=== PATIENT | male | born 1995 | race Caucasian/White ===

== ENCOUNTER 2025-05-30 20:40 | Inpatient (IN) | payer OTHER, SELFPAY ==
[2025-05-30 17:54] VITALS: BP 135/97
[2025-05-30 18:15] LABS: Hematocrit 39.4 % (39.0-52.0); Hemoglobin 13.5 g/dL (13.0-18.0); Mean Corp Hgb Conc. 34.3 g/dL (33.0-37.0); Mean Corpuscular Volume 86.0 fL (80.0-94.0); Nucleated Red Blood Cells % 0 % (-); Platelet Count 463 10^3/uL (130-400); Red Cell Dist. Width 13.9 % (11.5-14.5)
[2025-05-30 18:27] LABS: ALT (SGPT) 35 U/L (0-50); AST (SGOT) 26 U/L (17-59); Albumin 4.1 g/dl (3.5-5.0); Alkaline Phosphatase 71 U/L (38-126); Blood Urea Nitrogen 7 mg/dl (9-20); Calcium 9.7 mg/dl (8.4-10.2); Carbon Dioxide 28 mmol/L (22-30); Chloride 101 mmol/L (98-107); Glucose 111 mg/dl (70-99); Lipase 1621 U/L (23-300); Potassium 4.7 mmol/L (3.5-5.1); Sodium 135 mmol/L (135-145); Total Protein 6.8 g/dl (6.3-8.2); eGFR > 60.00
--- NOTE | 2025-05-30 19:19 | ED.GENMED ---
History of Present Illness
General
Chief Complaint: Abdominal Pain
Source: patient
Exam Limitations: none
Time Seen by Provider: 05/30/25 19:06
Nursing documentation reviewed up to this point in time: agreed with
History of Present Illness
History of Present Illness:
30-year-old male with a history as documented notable for alcohol abuse who presents to the emergency department for evaluation of abdominal pain. Patient reports onset of symptoms 3 days ago and have been constant since that time. He reports an
intense pain in the epigastrium radiates to the back as well as intense cramping across the mid abdomen. He reports associated nausea and bilious vomiting. He denies any diarrhea or constipation. Denies any urinary symptoms. Denies fevers or
chills. He is currently visiting the area for work, lives in [place]. He notes that he has a history of pancreatitis and in fact has had 2 recent flareups requiring hospitalization in [place] most recently last week. He claims his last alcohol
use was a month ago.
Review of Systems
Review of Systems
All Other Systems: ROS reviewed and negative except as documented in HPI and ROS
Constitutional: Denies fever
Respiratory: Denies trouble breathing
Cardiac: Denies chest pain
ABD/GI: Reports abdominal pain, nausea and vomiting; Denies diarrhea or constipated
: Denies flank pain
Musculoskeletal: Denies neck pain
Neurological: Denies dizzy or headache
Phy Exam
Physical Exam
Physical Exam:
General: Awake, alert, oriented x3; no acute distress
Head: Normocephalic, atraumatic
Eyes: Conjunctiva normal, sclera anicteric, pupils somewhat dilated and reactive to light bilaterally
Throat: Airway intact, handling secretions
Neck: Trachea midline, supple without meningismus
Lungs: Clear to auscultation bilaterally, no wheezing, rales, rhonchi
Heart: Regular rate and rhythm, no murmurs, gallops, or rubs appreciated
Abd: Soft, non distended, mild diffuse tenderness with moderate to severe tenderness in the epigastrium, no palpable masses
Neuro: Grossly intact
Skin: No jaundice noted
Extremities: Warm and well-perfused
Scores
Heart Failure Risk
Heart Failure Risk Score: Not Applicable
Heart Score for Chest Pain Patients
STEMI patient?: Not applicable
Withdrawal Assessment of Alcohol
Withdrawal Assessment Completed?: Not applicable
Course
Orders/Labs/Results
Orders:
Orders
05/30/25 18:04
Alcohol Urgent
Complete Blood Count/With Diff Urgent
Comprehensive Metabolic Panel Urgent
LDH Urgent
Comment: ADD ON
Lipase Urgent
05/30/25 19:09
0.9% Sodium Chloride 1000 ml [Nss] 1,000 ml IV BOLUS
05/30/25 19:18
CT Abd/pelvis W Iv Cont Urgent
Comment:
Reason For Exam: abd pain, N/V, h/o pancreatitis
05/30/25 19:19
HYDROmorphone [Dilaudid] 0.5 mg IV NOW STA
05/30/25 19:24
Electrocardiogram (*1) Urgent
Reason for Study: QTc Monitoring
EKG- Treatment ONCE
Abnormal Lab Results
05/30/25
18:04
WBC 12.2 H 10^3/uL
(4.8-10.8)
RBC 4.58 L 10^6/uL
(4.70-6.10)
Plt Count 463 H 10^3/uL
(130-400)
Absolute Neuts (auto) 10.2 H 10^3/uL
(1.4-6.5)
Absolute Lymphs (auto) 1.1 L 10^3/uL
(1.2-3.4)
Absolute Monos (auto) 0.7 H 10^3/uL
(0.1-0.6)
Neutrophils % 83.8 H %
(42.2-75.2)
Lymphocytes % 9.3 L %
(20.5-51.1)
BUN 7 L mg/dl
(9-20)
Glucose 111 H mg/dl
(70-99)
Lipase 1621 H* U/L
(23-300)
05/30/25 18:04
05/30/25 18:04
Vital Signs
Initial and Last Documented VS:
Initial Vital Signs
Temp Pulse Resp BP Pulse Ox
36.3 C 70 18 135/97 99
05/30/25 17:54 05/30/25 17:54 05/30/25 17:54 05/30/25 17:54 05/30/25 17:54
Last Documented Vital Signs
Temp Pulse Resp BP Pulse Ox
36.3 C 70 18 135/97 99
05/30/25 17:54 05/30/25 17:54 05/30/25 17:54 05/30/25 17:54 05/30/25 19:23
MDM/Problems Addressed
Differential Diagnosis Includes:
Pancreatitis, gastritis, cholelithiasis/cholecystitis
MDM/Problems Addressed:
30-year-old male with history of alcohol use presents for evaluation of abdominal pain that she reports similar to prior episodes of pancreatitis for which he has required hospitalization twice in the past month. Vitals and exam as above. Labs
were sent off including a CBC which shows a leukocytosis, CMP which showed no significant electrolyte derangements. His T. bili and transaminases are normal but his lipase is markedly elevated at 1621 consistent with acute pancreatitis. Added
alcohol level. Added LDH. Check CT abdomen and pelvis with no prior abdominal imaging. Pain control and fluids. Discussed case with hospitalist for admission.
Chronic conditions affecting care:
Alcohol use
*Radiology
Radiology exam reviewed: radiology read reviewed
*Pulse Oximetry
SaO2: 99
Oxygen Mode of Delivery: Room air
Patient hypoxic: no (99%)
*Critical Care Note
Total Time (30-74mins, 75-104mins- exclusive of procedures): Not Applicable
Data Reviewed
Source: patient
Patient Management
Social determinants of health affecting care: Substance abuse (Alcohol use)
Discussion with other providers: Hospitalist (Discussed with hospitalist)
Escalation/DeEscalation of care consider admission/obs:
Admission indicated
ED Attending Note
-
Portions of this chart may have been created with voice recognition software.� Occasional wrong word or��sound alike� substitutions may have occurred due to the inherent limitations of voice recognition software.
Discharge Plan
Departure
Patient Disposition: Admit
Date of Disposition: 05/30/25
Time of Disposition: 19:25
Admit to doctor: Dory
Presentation/result/management discussed w/ accepting MD/DO: Hospitalist
Discharge Problem:
Acute pancreatitis
Interventions
Interventions:
*Risk Screen - Suicide Last Done: 05/30/25 17:54
*General Assessment Last Done: 05/30/25 17:54
*Neglect/Abuse Screening Last Done: 05/30/25 17:54
*ED COVID-19 Vaccine History Last Done: 05/30/25 17:54
*ED Influenza Vaccine History Last Done: 05/30/25 17:54
Discharge Date and Time
Print Language: SCOTTISH
--- NOTE | 2025-05-30 19:36 | HPS.HSE ---
Family Physician
-
Family Physician:
Chief Complaint
-
abdominal pain
History of Present Illness
Patient is a 30-year-old male with past medical history significant for alcohol dependency who presented to [facility] ED for evaluation of abdominal pain associated with nausea and vomiting. Patient reports that pain was abrupt onset around midnight last
night and has not had any relief since. He describes pain as severe in epigastrium that radiates to his back, cramping like pain diffuse across abdomen and associated nausea and vomiting. Denies any fever, chills, chough, shortness of breath, chest
pain, diarrhea or urinary symptoms. He states that he has had history of pancreatitis requrining hospitalization most recently 2x in the last 30 days.
Medical History
Past Medical History
Past Medical History: Reports Other
Additional Past Medical History:
alcohol dependency
Hx pancreatitis
Past Surgical History: Reports Other
Additional Past Surgical History:
right ankle repair
exploratory abdominal surgery
Social History
Tobacco: Non-smoker
Alcohol: Former (last drink about a month a go )
Drug: Marijuana (uses edibles and/or smokes approximately 2x per week )
Living: Alone
Employment: Employed
Family History
Family History: Not pertinent
Allergies / Home Medications
Allergies reflects when Allergies were last updated in [employer].
Home Medications with original date entered in [employer]
Allergy/Medication List:
Allergies
Allergy/AdvReac Type Severity Reaction Status Date / Time
No Known Allergies Allergy Unverified 05/30/25 17:58
Home Medications
clonazepam 1 mg tablet 1 mg PO BIDPRN PRN anxiety 05/30/25
fluoxetine 40 mg capsule 40 mg PO DAILY 05/30/25
lumateperone 42 mg capsule (Caplyta) 42 mg PO DAILY 05/30/25
omeprazole 40 mg capsule,delayed release 40 mg PO DAILY 05/30/25
Review of Systems
-
History Source: Patient
Constitutional: Denies Fever or Chills
EENT: Denies Sore Throat
Respiratory: Denies Cough or Trouble Breathing
Cardiac: Denies Chest Pain, Diaphoresis, Palpitations or Syncope
Abdomen/GI: Reports Abdominal Pain, Nausea and Vomiting; Denies Diarrhea
: Denies Dysuria, Frequency or Urgency
Skin: Denies Rash
Neurological: Denies Dizzy, Headache, Weakness or Numbness
Physical Exam
Vital Signs
Vital Signs
Temp Pulse Resp BP Pulse Ox
97.4 F 70 18 135/97 99
05/30/25 17:54 05/30/25 17:54 05/30/25 17:54 05/30/25 17:54 05/30/25 19:23
Physical Exam
General: Well Developed, Well Nourished, Conversant and Pain
HEENT: NormoCephalic, Moist mucous membranes, Nose Appears Normal and Ears Appear Normal
Respiratory: Clear and Non Labored Respirations
Cardiac: S1/S2 and Regular Rhythm; No Murmur, Rub, Gallop or Peripheral Edema
Breast: Deferred by me
GI: Soft, Non Distended, Normal Bowel Sounds and Tender
Rectal: Deferred by Provider
Genito-urinary: Deferred by me
Musculoskeletal: No Clubbing, No Cyanosis and No Edema
Skin: Warm and IV/Catheter Site
Neuro: Awake, AO x 3 and Nonfocal/grossly intact
Psych: Anxious
Laboratory Results
-
05/30/25 18:04
05/30/25 18:04
Laboratory Results
Total Bilirubin 0.6 mg/dl (0.2-1.3) 05/30/25 18:04
AST 26 U/L (17-59) 05/30/25 18:04
ALT 35 U/L (0-50) 05/30/25 18:04
Alkaline Phosphatase 71 U/L (38-126) 05/30/25 18:04
Lipase 1621 U/L (23-300) H* 05/30/25 18:04
Data Reviewed
-
Lab Data: Labs Reviewed by me (WBC 12.2, Neut 83.8, lipase 1621)
Impression/Plan
-
IMPRESSION/PLAN:
#abdominal pain associated with nausea/vomiting 2/2 alcoholic pancreatitis vs. appendicitis vs. cholecystitis vs. gastritis
#alcohol dependency
#Hx pancreatitis
WBC 12.2, Neut 83.8, lipase 1621
Abd/Pel Ct: pending
reports last drink >30 days ago
reports hospitalization for pancreatitis x2 in last 30 days
- Admit to med/surg
- IVF NSS 200cc/hr
- pain regimen
- antiemetics
- supportive care
Code status: full code
DVT prophylaxis: SCDs
[2025-05-30] MEDS: DILAUDID 0.5 MG IV ×2 (19:52→21:27)
[2025-05-30] MEDS: NSS 1000 IV ×2 (19:52→22:28)
[2025-05-30 19:53] LABS: LDH 201 U/L (120-246)
[2025-05-30] MEDS: ZOFRAN 4 MG IV (19:53)
--- NOTE | 2025-05-30 19:54 | W.PN.UPDATE ---
Update Note
Progress Note Update
Patient seen in conjunction with nurse practitioner. I agree with the findings Hadley. I concur with Kristy burnham listed otherwise.
Briefly, this is a 30-year-old with nearly a fall. He has past medical history of significant alcohol abuse and comes in with acute abdominal pain. Reports onset 3 days ago and constant pain since then. It is localized to the epigastrium and
radiates to the back as well as across the mid abdomen. There is associated nausea and bilious emesis. No diarrhea and no constipation. No fevers or chills. No urinary symptoms.
Reports history of pancreatitis and has had recent flareup requiring hospitalizations. Last
Week ago. He claims her last alcohol use was 1 month ago.
In the emergency department he was afebrile, blood pressure 135/90 with a pulse of 74 and he was satting 99% on room air.
Today white count of 12.2 CBC otherwise unremarkable. Electrolytes BUN and creatinine were all normal. LFTs were normal. Lipase was elevated at 1600
Assessment and plan
Patient with likely recurrent acute pancreatitis possibly secondary to alcohol or flareup of chronic peritonitis from alcohol dependence. Denies recent alcohol use
-Admit to MedSurg
-N.p.o. for now
-Checking EtOH level
-If positive, I will have him placed on withdrawal protocol
-Aggressive IV fluids with LR at 150 mL, pain control and antiemetics
-DVT prophylaxis Lovenox subcu
CODE STATUS�full code
[2025-05-30 21:32] VITALS: BP 148/91
[2025-05-30 22:05] VITALS: BMI 25.3
--- NOTE | 2025-05-30 22:05 | PTCARENOTE ---
pt arrived from ED @ 2205 via stretcher; pt ambulated safely to from stretcher to bed; IVF per order; AOx3; VSS; bed locked in lowest position; call cerna within reach; care ongoing;
[2025-05-30 22:30] VITALS: BP 139/89
[2025-05-31] MEDS: DILAUDID 1 MG IV ×7 (00:30→21:02)
[2025-05-31] MEDS: ZOFRAN 4 MG IV ×3 (00:41→21:02)
[2025-05-31] MEDS: NSS 1000 IV ×2 (03:45→08:15)
[2025-05-31 06:54] LABS: Hematocrit 36.5 % (39.0-52.0); Hemoglobin 12.1 g/dL (13.0-18.0); Mean Corp Hgb Conc. 33.2 g/dL (33.0-37.0); Mean Corpuscular Volume 86.3 fL (80.0-94.0); Platelet Count 398 10^3/uL (130-400); Red Cell Dist. Width 14.2 % (11.5-14.5)
[2025-05-31 07:05] LABS: Lipase 918 U/L (23-300)
[2025-05-31 07:53] VITALS: BP 114/70
[2025-05-31] MEDS: PROZAC 40 MG PO (08:13)
[2025-05-31] MEDS: PROTONIX 40 MG PO (08:13)
[2025-05-31] MEDS: KLONOPIN 1 MG PO (08:26)
--- NOTE | 2025-05-31 10:13 | CM ---
CM following re: discharge planning.
Reviewed pt's chart, met with pt.
Pt is a 30 year old male, admitted with primary dx of abdominal pain associated with nausea/vomiting 2/2 alcoholic pancreatitis vs. appendicitis vs. cholecystitis vs. gastritis , alcohol dependency
Pt reports he lives with parents in [facility] [address], 2 steps to enter, has a sister. Pt reports he is here in [place] for work and will return back to [facility] after discharge from the hospital. Pt admitted to h/o alcohol abuse. Pt stated he attends AA meetings in
[facility], has a sponsor. Pt reports he will not need any other supportive services for alcohol related treatment. Pt reports he has never been in inpatient D&A rehab, was sober in the past for 6 months, relapsed. Pt stated he has heavy drinking
experience on Thursday05/26/25. Pt stated he is deeply aware of the consequences of continuing drinking and will work hard on his sobriety. Pt declined meeting with [facility] team
PCP: Dr. Hernandez in [facility]
Pharmacy: [facility]
D/c plan: return back to his parents house in [facility] with resumptions of AA meetings and sponsor support.
CM will follow with discharge plan updates as hospitalization progresses
--- NOTE | 2025-05-31 11:29 | W.PN.HOSP.TC ---
Today's Communication/Plan
-
monitor vitals
see plan
cw pain control
change fluids to LR
npo for now; advance to clears if improving
Assessment / Plan
Assessment / Plan
General: Well Developed, Well Nourished, Conversant and Pain
HEENT: NormoCephalic, Moist mucous membranes, Nose Appears Normal and Ears Appear Normal
Respiratory: Clear and Non Labored Respirations
Cardiac: S1/S2 and Regular Rhythm; No Murmur
GI: Soft, Non Distended, Normal Bowel Sounds and Tender
Musculoskeletal: No Edema
Neuro: Awake, AO x 3 and Nonfocal/grossly intact
Psych: Anxious
abdominal pain associated with nausea/vomiting 2/2 alcoholic pancreatitis
Suspect acute on chronic pancreatitis
#alcohol Abuse with dependency
#Hx pancreatitis
WBC 12.2, Neut 83.8, lipase 1621; now improving. lipase in am
Abd/Pel Ct: With pancreatitis, small subtle region of diminished attenuation within the liver. Nonemergent MRI outpatient
reports last drink >30 days ago
reports hospitalization for pancreatitis x2 in last 30 days
cw IVF; change to LR
- pain regimen
- antiemetics
- supportive care
hx of mitochondiral Disease
follows with physician at [facility]
hx of anxiety/depression
Code status: full code
DVT prophylaxis: SCDs
Anticipated Discharge: 24 - 48 hours
Subjective/Interval History
-
Date of Service: May 31, 2025
still has pain
Objective Data
-
Labs:
Laboratory Results
05/31/25
05:46
WBC 9.5
Hgb 12.1 L
Hct 36.5 L
Plt Count 398
Vital Signs:
Vital Signs
Temp Pulse Resp BP Pulse Ox
98.1 F 69 18 114/70 98
05/31/25 07:53 05/31/25 07:53 05/31/25 07:53 05/31/25 07:53 05/31/25 07:53
I&O
05/30/25 05/31/25 06/01/25
06:59 06:59 06:59
Intake Total 1800 / 1800
Output Total 600 / 600 400 / 400
Balance 1200 / 1200 -400 / -400
[2025-05-31] MEDS: LR 1000 IV ×3 (12:27→21:55)
[2025-05-31 15:30] VITALS: BP 121/84
[2025-05-31] MEDS: LOVENOX 40 MG SC (17:12)
[2025-05-31] MEDS: DILAUDID 0.5 MG IV (21:49)
[2025-05-31 23:00] VITALS: BP 130/72
[2025-06-01] MEDS: DILAUDID 1 MG IV ×6 (00:03→22:06)
[2025-06-01] MEDS: KLONOPIN 1 MG PO ×3 (00:10→22:06)
[2025-06-01] MEDS: OFIRMEV 100 IV (01:42)
[2025-06-01] MEDS: TORADOL 15 MG IV (02:03)
[2025-06-01] MEDS: LR 1000 IV ×5 (03:01→23:21)
[2025-06-01] MEDS: TYLENOL 650 MG PO (06:04)
[2025-06-01] MEDS: ZOFRAN 4 MG IV (06:21)
[2025-06-01 07:05] VITALS: BP 130/72
[2025-06-01] MEDS: PROTONIX 40 MG PO (08:12)
[2025-06-01] MEDS: PROZAC 40 MG PO (08:12)
--- NOTE | 2025-06-01 08:23 | PTCARENOTE ---
Pt anxious this morning regarding hospital stay. Pt reports ' I need to get out of here and follow up with my Doctor at home'. Pt initially refused to have blood drawn this morning, but with coaching, agreed to have labs drawn. Pt requesting a dose
of Klonopin. Klonopin given as ordered and requested. VSS, pt is afebrile. Lungs are clear to auscultation, HRR/bounding in the 80's at present. Call cerna is within reach, will continue to monitor.
[2025-06-01 08:28] LABS: Hematocrit 38.0 % (39.0-52.0); Hemoglobin 12.7 g/dL (13.0-18.0); Mean Corp Hgb Conc. 33.4 g/dL (33.0-37.0); Mean Corpuscular Volume 87.6 fL (80.0-94.0); Nucleated Red Blood Cells % 0 % (-); Platelet Count 362 10^3/uL (130-400); Red Cell Dist. Width 14.2 % (11.5-14.5)
[2025-06-01 08:59] LABS: ALT (SGPT) 19 U/L (0-50); AST (SGOT) 15 U/L (17-59); Albumin 3.5 g/dl (3.5-5.0); Alkaline Phosphatase 59 U/L (38-126); Blood Urea Nitrogen 8 mg/dl (9-20); Calcium 9.1 mg/dl (8.4-10.2); Carbon Dioxide 24 mmol/L (22-30); Chloride 104 mmol/L (98-107); Estimated Creatinine Clearance > 125 ml/min; Glucose 70 mg/dl (70-99); Lipase 633 U/L (23-300); Potassium 4.1 mmol/L (3.5-5.1); Sodium 135 mmol/L (135-145); Total Protein 6.0 g/dl (6.3-8.2); eGFR > 60.00
--- NOTE | 2025-06-01 11:56 | W.PN.HOSP.TC ---
Today's Communication/Plan
-
Monitor vitals
See plan
Continue with pain management
Continue with lactated Ringer's
GI evaluation
trend lipase
Assessment / Plan
Assessment / Plan
General: Well Developed, Well Nourished, Conversant and Pain
HEENT: NormoCephalic, Moist mucous membranes, Nose Appears Normal and Ears Appear Normal
Respiratory: Clear and Non Labored Respirations
Cardiac: S1/S2 and Regular Rhythm; No Murmur
GI: Soft, Non Distended, Normal Bowel Sounds and Tender
Musculoskeletal: No Edema
Neuro: Awake, AO x 3 and Nonfocal/grossly intact
Psych: Anxious
abdominal pain associated with nausea/vomiting 2/2 alcoholic pancreatitis
Suspect acute on chronic pancreatitis; Possible component of hemorrhagic pancreatitis on CT
#alcohol Abuse with dependency
#Hx pancreatitis
WBC 12.2, Neut 83.8, lipase 1621 on admission; now improving. lipase in am
Abd/Pel Ct: With pancreatitis, small subtle region of diminished attenuation within the liver. Nonemergent MRI outpatient
reports last drink >30 days ago
reports hospitalization for pancreatitis x2 in last 30 days
cw IVF; change to LR
- pain regimen
- antiemetics
- supportive care
Still not much improvement and has been requiring IV pain medications, check triglyceride. Consult GI. Continue with n.p.o., pain control.
hx of mitochondiral Disease
follows with physician at [facility]
hx of anxiety/depression
Code status: full code
DVT prophylaxis: SCDs
Anticipated Discharge: Within 24 hours
Subjective/Interval History
-
Date of Service: June 01, 2025
has pain
Objective Data
-
Labs:
Laboratory Results
06/01/25
08:10
WBC 10.9 H
Hgb 12.7 L
Hct 38.0 L
Plt Count 362
Sodium 135
Potassium 4.1
Chloride 104
Carbon Dioxide 24
BUN 8 L
Creatinine 0.7
Glucose 70
Calcium 9.1
Total Bilirubin 0.9
AST 15 L
ALT 19
Alkaline Phosphatase 59
Vital Signs:
Vital Signs
Temp Pulse Resp BP Pulse Ox
98.2 F 85 16 130/72 96
06/01/25 07:05 06/01/25 07:05 06/01/25 07:05 06/01/25 07:05 06/01/25 07:05
I&O
05/31/25 06/01/25 06/02/25
06:59 06:59 06:59
Intake Total 1800 / 1800 4900 / 4900
Output Total 600 / 600 2600 / 2600
Balance 1200 / 1200 2300 / 2300
[2025-06-01] MEDS: MORPHINE SULFATE 2 MG IV (12:26)
[2025-06-01 12:45] LABS: Triglycerides 111 mg/dl (10-149)
--- NOTE | 2025-06-01 14:27 | CON.GI ---
Addendum entered and electronically signed by Desiree Carroll MD 06/01/25 18:35:
I saw and examined the patient.
The DISPUTE SPECIALIST's note was reviewed and I agree with the note.
Comment: This is a 30-year-old male with past medical history as listed below but also significant for multiple episodes of alcohol related pancreatitis over the past 3 years and recently was admitted twice in May for pancreatitis. He lives
in [place] and recently came to this area for work and on Thursday he had a couple of drinks and over the past 2 days started to develop abdominal pain which progressively worsened and he presented to the emergency room. He does follow-up regularly
with his contact center analyst in [place] where he is from. No fevers or chills. No nausea or vomiting. He says he was sober for about 3 weeks before he relapsed on Thursday. He has not been to inpatient rehab in the past. On CT on admission he was
noted to have pancreatitis with probable hemorrhagic component and small-moderate ascites. His pain has improved and he is able to ambulate.
Assessment and plan
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 He says he has been sober for 3 weeks prior to that. Although the CT suggested possible hemorrhagic component his hemoglobin is
currently stable will need to monitor closely and if he does have worsening pain or drop in hemoglobin will need to get an MRI or repeat CT also. Continue supportive care with IV fluids he has received almost 4 L of lactated Ringer's and now on 200
cc/h, continue PPI and Zofran as needed and pain control. Encouraged ambulation, incentive spirometry. Will start him on clear liquid diet. If able to do advance his diet tomorrow then will restart his Zenpep also. Advised strict alcohol
abstinence and explained the risk of continued alcohol use including possible recurrent pancreatitis with necrosis and and also explained the risk of alcohol hepatitis and cirrhosis with continued alcohol ingestion. I encouraged him to
follow-up with his PCP to help with alcohol use disorder and also see a psychiatrist and therapist to specifically help him with this.
Original Note:
Consultation
-
Date/Time Consultation Requested: 06/01/25 1300
Date/Time Consultation Performed: 06/01/25 1345
Requesting Provider: Dr. Pugh
Performing Provider: Dr. Carroll/COY Logan
Reason for Consultation: pancreatitis
Medical History
Chief Complaint / HPI
Chief Complaint: abd pain
History of Present Illness:
30-year-old male with past medical history of Lyme disease, mitochondrial disease, SIBO, Tourette's disease, depression, GERD, peptic ulcer disease, alcohol abuse and multiple episodes of pancreatitis presents to the emergency room on 05/30/2025 with
acute recurrence of abdominal pain. Found to have recurrent pancreatitis. Asked to evaluate for the same. The patient states that he has a history of chronic pancreatitis. Started approximately 3 years ago associated with chronic alcohol abuse
issues. The patient states that he would drink up to 20 drinks a day. He states that he stopped drinking approximately 3 weeks ago however he 'messed up' and had 5 drinks on Thursday. He has been admitted for pancreatitis '30 times in the past 3
years' and multiple hospitals ranging from the [facility] to [place]'. He most recently had 2 hospitalizations since May 13 for pancreatitis. He follows mostly at [facility] for his pancreatitis. His contact center analyst
is Dr. Tye Moreno. He had a telehealth appointment with him in between his 2 episodes of pancreatitis for which he was hospitalized for. The patient states that on May 13 he was in [facility] for a quick stay. This
was again associated with alcoholic pancreatitis. He was treated with IV fluids and discharged to home. He states he had a telehealth appointment with his contact center analyst on the . He had a recurrent episode of pancreatitis and was admitted
somewhere between 05/16 and 05/18/2025 for recurrent pancreatitis and stayed 'a couple days'. He states these were usual uncomplicated episodes of pancreatitis. He states that his 'lipase levels were somewhat low for him in the 147-300 range'. He
then states he came down here for work, on Thursday night almost a week ago he had 5-6 drinks. He also forgot his Zenpep at home. He was not eating well. He states that he started taking creatine supplement. Started eating fatty foods. He states
that on Thursday he had a quesadilla, Brazilian fries and a cappuccino and then had acute onset of abdominal discomfort just above his bellybutton, this was a dull ache, deep, constant with increased discomfort with movement associated with nausea and
bilious vomiting. He made himself n.p.o. and called 911. He was brought to the emergency room for further evaluation. The patient had WBC count of 12.2, hemoglobin of 13.5, hematocrit 39.4, platelet count of 463. He was started on IV fluids. He
is on his fourth liter of lactated Ringer's since arrival. Lipase on arrival 1621, currently down to 633. LDH 201, total bilirubin 0.9, AST 15, ALT 19, alk phos 59. Sodium 135, potassium 4.1, BUN 8, creatinine 0.7, glucose 70, alcohol level
negative. He did have a CT of the abdomen and pelvis with IV contrast on arrival that showed moderate to advanced acute interstitial edematous pancreatitis. Necrotizing pancreatitis cannot be entirely excluded based on single exam. There is
probably a hemorrhagic component with a small amount of dependent layering ascites in the pelvis. Splenic vein is patent. Portal vein is patent though with proximal mild narrowing likely related to adjacent edema within the pancreas. No evidence
to suggest pseudoaneurysm formation. Probable adjacent inflammatory wall thickening of the distal transverse colon, splenic flexure and proximal descending colon. Small subtle regions of diminished attenuation within the liver which cannot be
further characterized. Consider follow-up nonemergent MRI. The patient denies any fevers, chills, no further nausea or bilious vomiting. He did try some sips of clears, he states he had some increased pain and was unable to take Tylenol orally.
They switched this over to IV Tylenol. He does state that he can take small sips of clear liquids but not more than 2 or 3 ounces at a time. The patient denies any melena, hematochezia, dysphagia or odynophagia. His last bowel movement was
Thursday morning and it was soft and brown. He states he usually has looser bowel movements on average. He denies any acholic stools, bilirubinuria. He does have a urinal at bedside with yellow urine. The patient denies any early satiety or
unintended weight loss. He does have a family history of pancreatic cancer in his maternal grandmother. No other family history of inflammatory bowel disease or gastrointestinal malignancy. His last EGD was approximately 1 year ago and this is to
document resolution of prior 'stomach ulcers'. He states this was done at [facility]. He has never had a colonoscopy before. He states other than the omission of his pancreatic enzyme he was taking all of his prescribed medications
including clonazepam, fluoxetine, Caplyta and omeprazole. At the present time he states he is still having discomfort he rates his pain as a '7'. He is awaiting pain medication. His vital signs are stable, he is afebrile 98.2 degrees, blood
pressure is 130/70, pulse 85, respirations 16 with O2 sat of 96% on room air.
Past Medical History
Past Medical History: Other (Lyme disease, mitochondrial disease, SIBO, Tourette's, depression, GERD, peptic ulcer disease, alcohol abuse, pancreatitis (multiple episodes))
Past Surgical History: Other (Ex lap (2 years ago), right ankle ORIF)
Social History
Tobacco: Non-Smoker
Alcohol: Chronic Alcoholic (Last drink 6 days ago, history of drinking '20 drinks a day'.)
Personal: Single
Family History
Family History: Other (Maternal grandmother pancreatic cancer, no other gastrointestinal malignancies or IBD)
Allergies / Home Medications
Allergy/AdvReac Type Severity Reaction Status Date / Time
No Known Allergies Allergy Unverified 05/30/25 17:58
�Medication �Instructions �Recorded
clonazepam 1 mg tablet 1 mg PO BIDPRN PRN anxiety 05/30/25
fluoxetine 40 mg capsule 40 mg PO DAILY Mental 05/30/25
Health/Anxiety
lumateperone 42 mg capsule 42 mg PO DAILY Mental 05/30/25
(Caplyta) Health/Anxiety
omeprazole 40 mg capsule,delayed 40 mg PO DAILY Gastrointestinal 05/30/25
release Issue
Review of Systems
-
All other systems: A 12 pt ROS was Negative except as stated above in HPI
Vital Signs
Temp Pulse Resp BP Pulse Ox
98.2 F 85 16 130/72 96
06/01/25 07:05 06/01/25 07:05 06/01/25 07:05 06/01/25 07:05 06/01/25 07:05
Physical Exam
Exam
General: No Apparent Distress
HEENT: Anicteric
Respiratory: Clear (Mildly decreased right base)
Cardiac: Regular Rhythm
GI: Soft, Non Distended, Normal Bowel Sounds and Tender (Periumbilical tenderness, mild)
Musculoskeletal: No Edema
Skin: Warm and Dry
Neuro: AO x 3
Psych: Calm
Results
WBC 10.9 10^3/uL (4.8-10.8) H 06/01/25 08:10
Hgb 12.7 g/dL (13.0-18.0) L 06/01/25 08:10
Hct 38.0 % (39.0-52.0) L 06/01/25 08:10
MCV 87.6 fL (80.0-94.0) 06/01/25 08:10
Plt Count 362 10^3/uL (130-400) 06/01/25 08:10
Absolute Neuts (auto) 9.2 10^3/uL (1.4-6.5) H 06/01/25 08:10
Sodium 135 mmol/L (135-145) 06/01/25 08:10
Potassium 4.1 mmol/L (3.5-5.1) 06/01/25 08:10
Chloride 104 mmol/L (98-107) 06/01/25 08:10
Carbon Dioxide 24 mmol/L (22-30) 06/01/25 08:10
BUN 8 mg/dl (9-20) L 06/01/25 08:10
Creatinine 0.7 mg/dL (0.7-1.3) 06/01/25 08:10
Calcium 9.1 mg/dl (8.4-10.2) 06/01/25 08:10
Total Bilirubin 0.9 mg/dl (0.2-1.3) 06/01/25 08:10
AST 15 U/L (17-59) L 06/01/25 08:10
ALT 19 U/L (0-50) 06/01/25 08:10
Alkaline Phosphatase 59 U/L (38-126) 06/01/25 08:10
Lipase 633 U/L (23-300) H 06/01/25 08:10
Diagnostic Image Results:
CT abdomen and pelvis with IV contrast:
Moderate to advanced acute interstitial edematous pancreatitis. Necrotizing pancreatitis cannot be entirely excluded based on this single examination. There is probably a hemorrhagic component, with a small amount of dependent layering ascites in
the pelvis.
The splenic vein is patent. The portal vein is patent, though with proximal mild narrowing likely related to adjacent edema within the pancreas. No evidence to suggest pseudoaneurysm formation.
Probable adjacent inflammatory wall thickening of the distal transverse colon, splenic flexure, and proximal descending colon.
Small subtle regions of diminished attenuation within the liver, which cannot be further characterized. Consider follow-up nonemergent MRI for additional characterization.
Prior GI Procedures:
EGD: per patient states '1 year ago at [facility]' history of stomach ulcers. States last endoscopy documented healing. Records unavailable to us. States he has a history of having at least 3 endoscopies.
Colonoscopy: never had.
Assessment / Plan
-
30-year-old male with past medical history of Lyme disease, mitochondrial disease, SIBO, Tourette's disease, depression, GERD, peptic ulcer disease, alcohol abuse and multiple episodes of pancreatitis (over '30 episodes over the past 3 years with
hospitalization' ) presents to the emergency room on 05/30/2025 with acute recurrence of abdominal pain. Found to have recurrent pancreatitis. Asked to evaluate for the same. He most recently had 2 hospitalizations since May 13 for
pancreatitis. He follows mostly at [facility] for his pancreatitis. His contact center analyst is Dr. Tye Moreno. He had a telehealth appointment with him in between his 2 episodes of pancreatitis for which he was hospitalized
for. The patient states that on May 13 he was in [facility] for a quick stay. This was again associated with alcoholic pancreatitis. He was treated with IV fluids and discharged to home. He states he had a telehealth
appointment with his contact center analyst on the . He had a recurrent episode of pancreatitis and was admitted somewhere between 05/16 and 05/18/2025 for recurrent pancreatitis and stayed 'a couple days'. He states these were usual uncomplicated
episodes of pancreatitis. He states that his 'lipase levels were somewhat low for him in the 147-300 range'. He then states he came down here for work, on Thursday night almost a week ago he had 5-6 drinks. He also forgot his Zenpep at home. He
was not eating well. He states that he started taking creatine supplement. Started eating fatty foods. He states that on Thursday he had a quesadilla, Brazilian fries and a cappuccino and then had acute onset of abdominal discomfort just above his
bellybutton, this was a dull ache, deep, constant with increased discomfort with movement associated with nausea and bilious vomiting. He made himself n.p.o. and called 911. He was brought to the emergency room for further evaluation. The patient
had WBC count of 12.2, hemoglobin of 13.5, hematocrit 39.4, platelet count of 463. He was started on IV fluids. He is on his fourth liter of lactated Ringer's since arrival. Lipase on arrival 1621, currently down to 633. LDH 201, total bilirubin
0.9, AST 15, ALT 19, alk phos 59. Sodium 135, potassium 4.1, BUN 8, creatinine 0.7, glucose 70, alcohol level negative. He did have a CT of the abdomen and pelvis with IV contrast on arrival that showed moderate to advanced acute interstitial
edematous pancreatitis. Necrotizing pancreatitis cannot be entirely excluded based on single exam. There is probably a hemorrhagic component with a small amount of dependent layering ascites in the pelvis. Splenic vein is patent. Portal vein is
patent though with proximal mild narrowing likely related to adjacent edema within the pancreas. No evidence to suggest pseudoaneurysm formation. Probable adjacent inflammatory wall thickening of the distal transverse colon, splenic flexure and
proximal descending colon. Small subtle regions of diminished attenuation within the liver which cannot be further characterized. Consider follow-up nonemergent MRI.
Impression:
Recurrent acute on chronic pancreatitis
--> Current CT shows probable hemorrhagic component with small amount of dependent layering ascites in pelvis.
--> Hemoglobin stable currently 12.7 down from 13.5 since 05/30/2025, has received almost 4 L of lactated Ringer's
--> Patient afebrile, no hypotension or tachycardia.
--> Recurrent episode of alcohol abuse 05/26/2025, stopped pancreatic enzyme, dietary indiscretions
--> 2 recent hospitalizations for pancreatitis 05/13/2025, 05/16/2025 [facility]
--> Patient's contact center analyst Dr. Tye Moreno (had telehealth appt 05/15/26)
Alcohol abuse
GERD
Depression
Mitochondrial disease
Plan:
- Continue IV fluids, currently lactated Ringer's at 200 cc an hour
- Add incentive spirometer. Patient currently OOB and ambulating hallways independently.
- Trend labs (CBC, BMP, lipase) and vital signs.
- Clear liquids as tolerated
- Pain control
- Continue Pantoprazole 40 mg daily
- Discussed the importance of ETOH cessation.
- Once able to eat will need to resume pancreatic enzymes (was on Zenpep 40,000 TID and 20,000 snacks)
- Discussed with patient will need follow up with his GI (Dr. Tye Moreno) and recommend MRI. Patient aware and will be obtaining a copy of his imaging prior to DC.
- Further recommendations to be forthcoming.
-
-
Thank you for consultation and allowing me to participate in the patient's care. Please call the concrete pipe machine operator GI physician during the after hours with any questions or concerns.
[2025-06-01 15:15] VITALS: BP 134/83
[2025-06-01] MEDS: NON-FORMULARY ITEM 42 MG PO (18:22)
[2025-06-01] MEDS: LOVENOX 40 MG SC (18:23)
[2025-06-01 23:03] VITALS: BP 123/70
[2025-06-02] MEDS: LR 1000 IV ×2 (04:21→10:54)
[2025-06-02] MEDS: DILAUDID 1 MG IV ×3 (04:42→11:02)
[2025-06-02 07:12] VITALS: BP 114/67
[2025-06-02 07:21] LABS: ALT (SGPT) 15 U/L (0-50); AST (SGOT) 13 U/L (17-59); Albumin 3.0 g/dl (3.5-5.0); Alkaline Phosphatase 56 U/L (38-126); Blood Urea Nitrogen 6 mg/dl (9-20); Calcium 8.7 mg/dl (8.4-10.2); Carbon Dioxide 29 mmol/L (22-30); Chloride 101 mmol/L (98-107); Estimated Creatinine Clearance > 125 ml/min; Glucose 84 mg/dl (70-99); Lipase 383 U/L (23-300); Potassium 4.0 mmol/L (3.5-5.1); Sodium 136 mmol/L (135-145); Total Protein 5.3 g/dl (6.3-8.2); eGFR > 60.00
[2025-06-02] MEDS: PROTONIX 40 MG PO (07:46)
[2025-06-02] MEDS: PROZAC 40 MG PO (07:46)
[2025-06-02 08:06] LABS: Hematocrit 33.6 % (39.0-52.0); Hemoglobin 11.0 g/dL (13.0-18.0); Mean Corp Hgb Conc. 32.7 g/dL (33.0-37.0); Mean Corpuscular Volume 85.7 fL (80.0-94.0); Nucleated Red Blood Cells % 0 % (-); Platelet Count 254 10^3/uL (130-400); Red Cell Dist. Width 14.2 % (11.5-14.5)
[2025-06-02] MEDS: KLONOPIN 1 MG PO (09:06)
--- NOTE | 2025-06-02 09:18 | W.PN.GI.CBS2 ---
Today's Communication / Plan
-
monitor pain on clear liquid diet if no better tomorrow plan repeat CT IV con
Assessment / Plan
-
30-year-old male with past medical history of Lyme disease, mitochondrial disease, SIBO, Tourette's disease, depression, GERD, peptic ulcer disease, alcohol abuse and multiple episodes of pancreatitis (over '30 episodes over the past 3 years with
hospitalization' ) presents to the emergency room on 05/30/2025 with acute recurrence of abdominal pain. Found to have recurrent pancreatitis after recent EtOH. CT 05/30 shows probable hemorrhagic component with small amount of dependent layering
ascites in pelvis.
Recommendations:
- Continue IV fluids, clear liquid diet
- If no improvement in [address] IV con (no po needed) - d/w pt will wait until tomorrow am see if improvement
- Trend CBC, BMP, LFTs, vitals
- Once advance diet will start zenpep
- Pain control
- Continue Pantoprazole 40 mg daily
- Discussed the importance of ETOH cessation. Patient in AA.
- Once able to eat will need to resume pancreatic enzymes (was on Zenpep 40,000 TID and 20,000 snacks)
- Discussed with patient will need follow up with his GI (Dr. Tye Moreno) and recommend MRI. Patient aware and will be obtaining a copy of his imaging prior to DC. (Small subtle regions of diminished attenuation within the liver which cannot be
further characterized. Consider follow-up nonemergent MRI.).
Total Time Spent with Patient (in minutes): 35
Subjective
Subjective
Date of Service: June 02, 2025
Ongoing abd pain worse after clear liquids
Objective
Data Reviewed
Laboratory Data:
Laboratory Results
06/02/25 06:01
06/02/25 06:01
Laboratory Results
Total Bilirubin 1.0 mg/dl (0.2-1.3) 06/02/25 06:01
AST 13 U/L (17-59) L 06/02/25 06:01
ALT 15 U/L (0-50) 06/02/25 06:01
Alkaline Phosphatase 56 U/L (38-126) 06/02/25 06:01
Lipase 383 U/L (23-300) H 06/02/25 06:01
Vital Signs and I&O:
Vital Signs
Temp Pulse Resp BP Pulse Ox
99.8 F 85 16 114/67 97
06/02/25 07:12 06/02/25 07:12 06/02/25 07:12 06/02/25 07:12 06/02/25 07:12
I&O
06/01/25 06/02/25 06/03/25
06:59 06:59 06:59
Intake Total 4900 / 4900 4800 / 4800
Output Total 2600 / 2600 2550 / 2550
Balance 2300 / 2300 2250 / 2250
Physical Exam
Physical Exam
GI: Non Distended and Tender
--- NOTE | 2025-06-02 10:55 | W.PN.HOSP.TC ---
Today's Communication/Plan
-
Monitor vital signs and see plan
Continue to monitor his symptoms
Continue with lactated Ringer's
Pain control
GI following
Possible repeat imaging if symptoms do not improve
Assessment / Plan
Assessment / Plan
General: Well Developed, Well Nourished, Conversant and Pain
HEENT: NormoCephalic, Moist mucous membranes, Nose Appears Normal and Ears Appear Normal
Respiratory: Clear and Non Labored Respirations
Cardiac: S1/S2 and Regular Rhythm; No Murmur
GI: Soft, Non Distended, Normal Bowel Sounds and Tender
Musculoskeletal: No Edema
Neuro: Awake, AO x 3 and Nonfocal/grossly intact
Psych: Anxious
abdominal pain associated with nausea/vomiting 2/2 alcoholic pancreatitis
Suspect acute on chronic pancreatitis; Possible component of hemorrhagic pancreatitis on CT
#alcohol Abuse with dependency
#Hx pancreatitis
WBC 12.2, Neut 83.8, lipase 1621 on admission; now improving
Abd/Pel Ct: With pancreatitis, small subtle region of diminished attenuation within the liver. Nonemergent MRI outpatient
reports last drink >30 days ago
reports hospitalization for pancreatitis x2 in last 30 days
cw LR
- pain regimen
- antiemetics
- supportive care
very little improvement today. now on clears. GI following. May need repeat imaging if symptoms do not improve
hx of mitochondiral Disease
follows with physician at [facility]
hx of anxiety/depression
Code status: full code
DVT prophylaxis: SCDs
Anticipated Discharge: 24 - 48 hours
Subjective/Interval History
-
Date of Service: June 02, 2025
still has some discomfort
Objective Data
-
Labs:
Laboratory Results
06/02/25
06:01
WBC 7.1
Hgb 11.0 L
Hct 33.6 L
Plt Count 254 D
Sodium 136
Potassium 4.0
Chloride 101
Carbon Dioxide 29
BUN 6 L
Creatinine 0.8
Glucose 84
Calcium 8.7
Total Bilirubin 1.0
AST 13 L
ALT 15
Alkaline Phosphatase 56
Vital Signs:
Vital Signs
Temp Pulse Resp BP Pulse Ox
99.8 F 85 16 114/67 97
06/02/25 07:12 06/02/25 07:12 06/02/25 07:12 06/02/25 07:12 06/02/25 07:12
I&O
06/01/25 06/02/25 06/03/25
06:59 06:59 06:59
Intake Total 4900 / 4900 4800 / 4800
Output Total 2600 / 2600 2550 / 2550
Balance 2300 / 2300 2250 / 2250
[2025-06-02 12:16] VITALS: BMI 25.3
--- NOTE | 2025-06-02 12:41 | W.PN.UPDATE ---
Update Note
Progress Note Update
Notified by RN the patient decides to leave AMA. Discussed with patient the risks of leaving AMA however he still decides to leave AGAINST MEDICAL ADVICE. AMA form signed
--- NOTE | 2025-06-02 12:46 | W.DCSUMMARY ---
Discharge Summary
Discharge Data
Date of Admission: 05/30/25
Date of Discharge: 06/02/25
-
Pending Results: Yes
Hospital Course
30-year-old male with history of alcohol abuse with dependency, mitochondrial disease, anxiety, depression came to the hospital abdominal pain nausea and vomiting consistent with acute on chronic pancreatitis. CT scan was consistent with possible
hemorrhagic component of pancreatitis. Patient was then made n.p.o. along with aggressive fluid resuscitation and pain control. His lipase continue to downtrend. He was also seen by GI on this hospitalization. On 06/02/2025 patient decided to
leave AGAINST MEDICAL ADVICE. Risk of leaving AMA was discussed with the patient however he still chose to leave AMA. Patient left AMA on 06/02/2025.
Discharge Plan
-
Patient Disposition: Against Medical Advice
Discharge Diagnosis/Procedures: Possible acute hemorrhagic pancreatitis
Diet: Other diet
Additional Diets: Clear liquid diet
Referrals:
UNKNOWN - PT DOES,NOT KNOW [Family Provider]
Prescriptions:
Continued
fluoxetine 40 mg capsule
40 mg PO DAILY
clonazepam 1 mg tablet
1 mg PO BIDPRN PRN (Reason: anxiety)
Caplyta 42 mg capsule
42 mg PO DAILY
Held
omeprazole 40 mg capsule,delayed release(DR/EC)
40 mg PO DAILY
Hold Instructions: Hold until instructed by your physician
Discharge Orders:
Discharge Patient (As Directed); Ordered 06/02/25
Ordered By: Thomas Pugh
Discharge Date and Time
Discharge Date/Time: 06/02/25 12:54
Print Language: KYRGYZ
--- NOTE | 2025-06-02 13:27 | PTCARENOTE ---
Rn medical staffing coordinator-Patient provided with dc instructions that said they were dc AMA. Patient provided with his home medications from med cart. Patient states that he is going to follow up with his doctor at [facility].
== END 2025-06-02 12:54 | disposition left against medical advice (07) | DRG 439 ==
LOC: 2 SOUTH 20:40
PROVIDERS: Emergency Medicine; Nurse Practitioner Family; ADMITTING PHYSICIAN Internal Medicine; ATTENDING PHYSICIAN Internal Medicine; CONSULT PHYSICIAN Internal Medicine Gastroenterology; EMERGENCY PHYSICIAN Emergency Medicine
DX: K85.20 Alcohol induced acute pancreatitis without necrosis or infection (principal); E88.40 Mitochondrial metabolism disorder, unspecified; R18.8 Other ascites; F10.20 Alcohol dependence, uncomplicated; K63.8219 Small intestinal bacterial overgrowth, unspecified; F95.2 Tourette's disorder; F32.A Depression, unspecified; K21.9 Gastro-esophageal reflux disease without esophagitis; F41.9 Anxiety disorder, unspecified; K86.1 Other chronic pancreatitis; Z53.29 Procedure and treatment not carried out because of patient's decision for other reasons; Z87.11 Personal history of peptic ulcer disease; Z86.19 Personal history of other infectious and parasitic diseases; Z80.0 Family history of malignant neoplasm of digestive organs
CPT/HCPCS: 74177; 80053; 82077; 83615; 83690; 84478; 85025; 85027; 96361; 96374; 96375; 99285; Q9967